=== PATIENT | female | born 1955 | race Caucasian/White ===

== ENCOUNTER 2016-10-09 11:10 | Observation (INO) | payer BC ==
[~2016-10-09] VITALS: Ht 167.6 cm; Wt 68.6 kg
--- NOTE | ~2016-10-09 | HEMODYNAMI ---
PATIENT:NATAN OBANDO MEDICAL RECORD: [id number] : 55 [facility] [id number] ADMISSION DATE: 10/09/16 Generatedon:10/10/201613:08 Patient name: NATAN OBANDO Patient #: [id number] SSN: DO B: 1955 Date of study: 10/10/2016 Page: Of Hemodynamic Procedure Report Patient Data Patient Demographics Procedure consent was obtained First Name: NATAN Gender: Female Last Name: GISELLA : 1955 [facility] Initial: NANDINI Age: 61 year(s) Patient #: [id number] Race: Unknown Additional ID: [id number] Contact details Address: [address] [place] [address] State: [place] City: [place] Zip code: [address] Past Medical History Allergies Allergen Reaction Date Comments Reported Other allergy 10/10/2016 paper tape Admission Admission Data Admission Date: 10/09/2016 Admission Time: 17:32 Room #: D2122 Lab Results Lab Result Date: 10/10/2016 Lab Result Time: 0:00 Biochemistry Name Units Result Min Max BUN mg/dl 12 --(-*--)-- 7 18 Creatinine mg/dl 0.9 --(-*--)-- 0.6 1.3 CBC Name Units Result Min Max Hemoglobin g/dl 14.1 --(*---)-- 13.5 17.5 Procedure Procedure Types Cath Procedure Diagnostic Procedure LHC LHC w/Coronaries PCI Procedure Coronary Stent Initial Miscellaneous Procedures Moderate Sedation up to 15 minutes Peripheral Cath Diagnostic Procedure Cath Peripheral Four Vessel Arteriogram Procedure Description Procedure Date Procedure Date: 10/10/2016 Procedure Start Time: 12:37 Procedure End Time: 13:06 Procedure Staff Name Function Jeff Paige MD Performing Physician Joe Griggs RT Scrub Zahida Carlos RN Nurse Rodney Brewer RT Monitor Procedure Data Cath Procedure Fluoroscopy Diagnostic fluoroscopy Total fluoroscopy Time: 5.1 time: 5.1 min min Diagnostic fluoroscopy Total fluoroscopy dose: 569 dose: 569 mGy mGy Contrast Material Contrast Material Type Amount (ml) Isovue 300 146 Entry Location Entry Primary Successful Side Size Upsize Upsize Entry Closure Succes sful Closure Location (Fr) 1 (Fr) 2 (Fr) Remarks Device Remarks Femoral Right 5 Fr 6 Fr artery Short Estimated blood loss: 10 ml Diagnostic catheters Device Type Used For End Catheter Placement Cordis 5Fr JL 4.0 Procedure Catheter (MP) Cordis 5Fr 3DRC Catheter Procedure (MP) Cordis 5Fr Pigtail Procedure Catheter (MP) Procedure Medications Medication Administration Route Dosage Oxygen NC 2 l/min Heparin Flush Bag added to field 2 bags (1000units/500ml NS) Lidocaine 2% added to field 20 Versed I.V. 1 mg Fentanyl I.V. 50 mcg Versed I.V. 1 mg Fentanyl I.V. 50 mcg Versed I.V. 1 mg Versed I.V. 1 mg Heparin Bolus I.V. 4000 units Integrilin (Bolus I.V. 6.2 ml 2mg/ml) Plavix P.O. 600 mg Hemodynamics Rest HGB: 14.1 (g/dl) Heart Rate: 80 (bpm) Pressure Samples Time Site Value (mmHg) Purpose Heart Use Rate(bpm) 12:39 AO 116/79(88) Snapshot 85 12:47 LV 130/6,21 Snapshot 98 Gradients Valve Time Site Site Mean SEP/DFP Peak To Heart Use 1 2 (mmHg) (sec/min) Peak Rate (mmHg) (bpm) Aortic 12:48 LV AO 97 Snapshots Pre Cath Intra NCS Post Cath Vital Signs Time Heart Resp SPO2 etCO2 LM2oqme NIBP (mmHg) Rhythm Pain Sedation Rate (ipm) (%) (mmHg) (mmHg) Status Level (bpm) 12:24:58 77 15 95 0 0 136/79(97) NSR 0 (11) 10(A) , No pain 12:29:10 79 15 99 0 0 124/77(93) NSR 0 (11) 10(A) , No pain 12:33:17 79 15 99 0 0 120/76(100) NSR 0 (11) 10(A) , No pain 12:37:25 81 18 97 0 0 115/74(95) NSR 0 (11) 10(A) , No pain 12:41:31 87 17 95 0 0 113/73(104) NSR 0 (11) 10(A) , No pain 12:45:37 89 18 96 0 0 101/71(90) NSR 0 (11) 10(A) , No pain 12:49:36 95 18 96 0 0 113/74(105) NSR 0 (11) 9(A) , No pain 12:53:42 91 16 96 0 0 102/71(96) NSR 0 (11) 9(A) , No pain 12:57:44 86 21 98 0 0 116/73(88) NSR 0 (11) 9(A) , No pain 13:01:03 87 13 95 0 0 101/81(96) NSR 0 (11) 9(A) , No pain 13:05:00 88 14 95 0 0 120/78(100) NSR 0 (11) 9(A) , No pain Medications Time Medication Route Dose Verified Delivered Reason Notes Effectiveness by by 12:31:35 Oxygen NC 2 Jeff Zahida Per physician l/min St. Andreas Carlos RN, MD 12:31:43 Heparin Flush added 2 Jeff Jeff used for Bag to bags [facility] procedure (1000units/500ml field MD SIN NS) 12:31:50 Lidocaine 2% added 20ml Jeff Jeff used for to vial [facility] procedure field MD SIN 12:31:58 Versed I.V. 1 mg Jeff Zahida for sedation [facility] Andreas Carlos RN, MD 12:32:04 Fentanyl I.V. 50 Jeff Zahida for sedation mcg [facility] Andreas Carlos RN, MD 12:34:52 Versed I.V. 1 mg Jeff Zahida for sedation [facility] Andreas Carlos RN, MD 12:35:03 Fentanyl I.V. 50 Jeff Zahida for sedation mcg [facility] Andreas Carlos RN, MD 12:37:48 Versed I.V. 1 mg Jeff Zahida for sedation [facility] Andreas Carlos RN, MD 12:40:59 Versed I.V. 1 mg Jeff Zahida for sedation [facility]. Andreas Carlos RN, MD 12:49:41 Heparin Bolus I.V. 4000 Jeff Zahida for dose units [facility] Andreas Carlos RN anticoagulation verified MD dalila banda 12:53:12 Integrilin I.V. 6.2 Jeff Teague for wasted (Bolus 2mg/ml) ml St. Anrdeas Carlos RN antiplatelet 3.8mL MD therapy 13:00:25 Plavix P.O. 600 [address] for mg [facility] Andreas Carlos RN antiplatelet MD therapy Procedure Log Time Note 12:00:02 Rodney Brewer RT(R) (CV) sent for patient. Start room use. 12::33 Lab Result : BUN 12 mg/dl 12::33 Lab Result : Creatinine 0.9 mg/dl 12::33 Lab Result : Hemoglobin 14.1 g/dl 12:09:58 ACC Patient presents with Unstable Angina CCS Anginal Class 3--Marked limitation of physical activity, angina occurs with ordinary activity.. 12:10:00 Diagnostic Cath status Urgent 12::09 Time tracking: Regular hours 12:10:13 Plan of Care:Hemodynamics will remain stable., Cardiac rhythm will remain stable., Comfort level will be maintained., Respiratory function will remain adequate., Patient/ family verbilizes understanding of procedure., Procedure tolerated without complication., Recovers from procedure without complications.. 12:20:10 Patient received from Med II to CCL 1 Alert and oriented. Tansferred to table in Supine position. 12:20:11 Warm blankets applied, and janene hugger turned on for patient comfort. 12:20:11 Correct patient and procedure confirmed by team. 12:20:13 Signed procedure consent form obtained from patient. 12:20:13 ECG and BP/O2 sat monitors applied to patient. 12:20:30 Lab results completed and on chart. 12:20:47 Previous problem with sedation/anesthesia? No ? 12:20:48 Snore? Yes 12:20:49 Sleep apnea? No 12:20:50 Deviated septum? No 12:20:51 Opens mouth fully? Yes 12:20:52 Sticks out tongue? Yes 12:21:15 Airway obstruction? Yes bronchitis 12:21:18 Dentures? No ? 12:23:53 Vital chart was started 12:26:01 Pre procedure: right dorsailis pedis pulse 2+ Normal; easily identifiable; not easily obliterated 12:26:06 Patient pain scale 0/10 ?. 12:26:22 IV patent on arrival in left wrist with 0.9% NaCl at [facility]. 12::31 Right groin area was prepped with chlora-prep and draped in sterile fashion 12::36 Alarms reviewed by R. N. 12::37 Sharps counted by scrub and verified by R.N. 12::41 Use device set Femoral Dx 12:26:43 Acist Syringe opened to sterile field. 12::44 Bag Decanter opened to sterile field. 12::45 Medline Cath Pack opened to sterile field. 12:26:45 Terumo 5Fr Gardiner Sheath opened to sterile field. 12:26:46 St Tomer 260cm J .035 wire opened to sterile field. 12:26:48 Acist Hand Control opened to sterile field. 12::48 Acist Manifold opened to sterile field. 12:26:49 Diagnostic Infinity 5Fr Multipack catheter opened to sterile field. 12:26:50 Tegaderm 4 x 4 opened to sterile field. 12:28:58 Baseline sample Acquired. 12:29:04 Rhythm: sinus rhythm 12:29:06 Full Disclosure recording started 12:29:14 H&P Date Dictated: 10/09/2016 Within 30 days and on chart.. 12:29:16 Pre-procedure instructions explained to patient. 12:29:20 Family in waiting room. 12:29:25 Patient NPO since Breakfast. 12:29:45 Patient allergic to Other allergypaper tape 12:29:50 Is the patient allergic to Iodine/contrast media? No. 12:29:54 Is patient on blood thinner?Yes 12:29:58 Patient diabetic? No. 12:30:03 Patient not . Patient is over age 55. 12:30:35 Physician arrived 12::36 --------ALL STOP TIME OUT------ 12:30:37 Final Timeout: patient, procedure, and site verified with staff and physician. All members of the team are in agreement. 12:30:46 Right groin site verified by team. 12:30:54 Physical assessment completed. ASA score P 2 - A patient with mild systemic disease as per Jeff Paige MD. 12:31:01 Sedation plan: IV Moderate Sedation Versed, Fentanyl 12:31:35 Oxygen 2 l/min NC was administered by Zahida Breanna RN; Per physician; 12:31:43 Heparin Flush Bag (1000units/500ml NS) 2 bags added to field was administered by Jeff Paige MD; used for procedure; 12:31:50 Lidocaine 2% 20ml vial added to field was administered by Jeff Paige MD; used for procedure; 12:31:58 Versed 1 mg I.V. was administered by Zahida Carlos RN; for sedation; 12:32:04 Fentanyl 50 mcg I.V. was administered by Zahida Carlos RN; for sedation; 12:34:52 Versed 1 mg I.V. was administered by Zahida Carlos RN; for sedation; 12:35:03 Fentanyl 50 mcg I.V. was administered by Zahida Carlos RN; for sedation; 12:35:39 Zero performed for pressure channel P1 12:37:02 Procedure started. 12:37:06 Local anesthetic to right femoral artery with Lidocaine 2% by Jeff Paige MD.INITIAL ACCESS ONLY 12:37:48 Versed 1 mg I.V. was administered by Zahida Carlos RN; for sedation; 12:38:07 A 5 Fr sheath was inserted into the Right Femoral artery 12:39:04 A Cordis 5Fr JL 4.0 Catheter (MP) was advanced over the wire and used for Procedure. 12:39:28 LCA angiography performed. 12:40:27 Catheter removed. 12:40:59 Versed 1 mg I.V. was administered by Zahida Carlos RN; for sedation; 12:41:01 A Cordis 5Fr 3DRC Catheter (MP) was advanced over the wire and used for Procedure. 12:41:41 RCA angiography performed. 12:43:28 Left carotid angiography performed. 12:44:18 Right carotid angiography performed. 12:46:14 Catheter removed. 12:46:22 A Cordis 5Fr Pigtail Catheter (MP) was advanced over the wire and used for Procedure. 12:47:32 Dyynotronic Launcher 6Fr HS I guide catheter opened to sterile field. 12:47:35 [employer]KS BasixCompak Inflation Kit opened to sterile field. 12:48:08 LV hemodynamics recorded. 12:48:11 LV gram done using ROSE 12:48:22 EF : 60 % 12:48:46 Catheter removed. 12:48:54 Proceeding to intervention. 12:49:31 Wahl [place] 300cm 0.014 guide wire opened to sterile field. 12:49:41 Heparin Bolus 4000 units I.V. was administered by Zahida Carlos RN; for anticoagulation; dose verified wtih dr banda 12:49:52 Procedure type changed to Cath procedure, Diagnostic procedure, LHC, LHC w/Coronaries, PCI procedure, Coronary Stent Initial, Miscellaneous Procedures, Moderate Sedation up to 15 minutes, Peripheral Cath Diagnostic Procedure, Cath Peripheral, Four Vessel Arteriogram 12:50:00 Wahl BMW [place] 2 J-tip 300cm 0.014 guide wir opened to sterile field. 12:50:23 Terumo 6Fr Gardiner Sheath opened to sterile field. 12:50:33 Sheath upsized to a 6 Fr Short. 12:50:43 6 Fr HS 1 guide catheter was inserted over the wire 12:51:25 COUGAR wire advanced. 12:52:49 Wire advanced across lesion. 12:53:12 Integrilin (Bolus 2mg/ml) 6.2 ml I.V. was administered by Zahida Carlos RN; for antiplatelet therapy; wasted 3.8mL 12:53:55 Inflation Number: 1 A Medtronic Integrity 3.5 X 12 stent was prepped and advanced across the Mid RCA. The stent was deployed at 14 MAMI for 0:30 (min:sec). 12:54:38 Stent catheter was removed intact over wire. 12:58:38 Inflation Number: 1 A Medtronic Integrity 3.5 X 12 stent was prepped and advanced across the Prox RCA. The stent was deployed at 0 MAMI for 0:30 (min:sec). 12:59:01 Stent catheter was removed intact over wire. 12:59:02 Wire removed. 12:59:03 Guide catheter removed. 12:59:26 Cordis 6Fr Exoseal opened to sterile field. 12:59:29 Procedure ended.(Physican Out) 13:00:25 Plavix 600 mg P.O. was administered by Zahida Carlos RN; for antiplatelet therapy; 13:00:50 Fluoroscopy time 05.10 minutes. 13:00:57 Fluoroscopy dose: 569 mGy 13:00:57 Flurop Dose total: 569 13:01:02 Contrast amount:Isovue 300 146ml. 13:01:07 Sharps counted by scrub and verified by R.N. 13:03:47 Insertion/operative site no bleeding no hematoma. 13:03:51 Post-op/insertion site Right Femoral artery dressed using a 4 x 4 and Tegaderm. 13:03:55 Post right femoral artery:stable 13:03:57 Post Procedure Pulses reassessed and unchanged 13:05:12 Post-procedure physical assessment completed. ASA score P 2 - A patient with mild systemic disease as per Jeff Paige MD. 13:05:28 Post procedure rhythm: unchanged. 13:05:48 Estimated blood loss: 10 ml 13:05:50 Post procedure instruction explained to patient.Patient verbalizes understanding. 13:05:51 Patient needs reinforcement of post procedure teaching. 13:05:52 Procedure and supply charges have been captured, reviewed, submitted and are correct. 13:05:53 Vital chart was stopped 13:05:54 See physician's report for complete and final results. 13:05:56 Report given to PCU. 13:06:00 Patient transfered to PCU with Bed. 13:06:03 Procedure ended. 13:06:03 Full Disclosure recording stopped 13:07:10 End room use (Document Last) Intervention Summary Intervention Notes Time ActionType Lesion and Equipment Action# Pressure Duration Attributes Used 12:53:55 Place stent Mid RCA Medtronic 1 14 00:30 Integrity 3.5 X 12 stent 12:58:38 [address] stent Prox RCA Medtronic 1 0 00:30 Integrity 3.5 X 12 stent Device Usage Item Name Manufacture Quantity Catalog Hospital Part Current Minimal Lot# / Number Charge Number Stock Stock Serial# Code Acist Acist 1 44471 795189 085903 [id number] 20 Syringe Medical Systems Inc Bag Microtek 1 2002S 409434 10623 110414 5 Decanter [employer] Medline Cardinal 1 [id number] 915206 13262 479148 5 Cath Pack CNZZ Terumo 5Fr Terumo 1 [id number] 293666 646907 978463 [address] Tomer 1 607257 705135 426271 610411 30 260cm J .035 wire Acist Hand Acist 1 22036 547053 138477 924252 5 [employer] Inc Acist Acist 1 09689 622967 301998 168311 5 [employer] Inc Diagnostic Cardinal 1 [id number] 228082 04283 357422 30 Infinity Health 5Fr Multipack catheter Tegaderm 4 3M 1 1626W 421030 368612 762376 5 x 4 Cordis 5Fr Cardinal 1 566808 5 JL 4.0 Health Catheter (MP) Cordis 5Fr Cardinal 1 766309 5 3DRC Health Catheter (MP) Cordis 5Fr Cardinal 1 733095 5 Pigtail Health Catheter (MP) Medtronic Medtronic 1 [id number] 834129 02678 734946 1 Launcher 6Fr HS I guide catheter [facility] 1 [id number] 905166 380009 807801 15 BasixCompak Medical Inflation Kit Wahl Wahl 1 [id number] 130305 739967 440566 1 [place] Vascular 300cm 0.014 guide wire Terumo 6Fr Terumo 1 [id number] 911585 860826 506455 40 Gardiner Sheath Wahl BMW Wahl 1 [id number] 737073 481386 573245 5 [place] 2 Vascular J-tip 300cm 0.014 guide wir Medtronic Medtronic 2 [id number] 373023 960014 6 [id number] Integrity [id number] 3.5 X 12 stent Cordis 6Fr Cardinal 1 EX600 099946 570525 070498 10 [facility] CNZZ Signature Audit [place] Stage Time Signature Unsigned Intra-Procedure 10/10/2016 Rodney Brewer 1:08:41 PM RT(R) (CV) Signatures Monitor : Rodney Brewer RT Signature : Date : Time : [facility] [address] [place] [address]
[2016-10-09 11:52] LABS: BASOPHILS 0.3 % (0-2); HEMATOCRIT 41.4 % (36.0-48.0); IMMATURE GRANULOCYTES 0.5 % (0-5); MCH 32.6 pg (26.0-34.0); MCHC 33.8 g/dL (31.0-37.0); MCV 96.3 fL (80.0-100.0); MONOCYTES 8.2 % (2-11); PLATELET COUNT 182 10x3/uL (130-400); RDW 12.2 % (11.5-14.5); WBC 10.6 10x3/uL (4.8-10.8)
[2016-10-09 12:11] LABS: ALBUMIN 3.3 g/dL (3.4-5.0); ALKALINE PHOSPHATASE 71 U/L (46-116); ALT (SGPT) 34 U/L (10-68); BILIRUBIN - TOTAL 0.52 mg/dL (0.2-1.3); CALC OSMOLALITY 270 mosm/kg (275-300); CALCIUM 8.6 mg/dL (8.5-10.1); CARBON DIOXIDE 28.1 mmol/L (21.0-32.0); CHLORIDE - SERUM 101 mmol/L (98-107); CREATININE - SERUM 0.8 mg/dL (0.6-1.3); GLUCOSE 84 mg/dL (74-106); PROTEIN - SERUM 7.1 g/dL (6.4-8.2); SODIUM 137 mmol/L (136-145); UREA NITROGEN 7 mg/dL (7-18); eGFR NON AFRICAN AMERICAN 77 mL/min (90-120)
[2016-10-09 12:19] LABS: POTASSIUM - SERUM 5.2 mmol/L (3.5-5.1)
[2016-10-09 12:26] LABS: CHOLESTEROL, TOTAL 156 mg/dL (0-200); CKMB 0.9 U/L (0.0-3.6); CREATINE KINASE 170 UL (21-215); TRIGLYCERIDE 333 mg/dL (30-200); TROPONIN-I < 0.017 ng/mL (0.000-0.060)
[2016-10-09 12:27] LABS: CHOL - HDL RATIO 5.8 ratio (2.3-4.1); HDL CHOLESTEROL 27 mg/dL (32-96); LDL CHOLESTEROL 63 mg/dL (0-100); LDL-HDL RATIO 2.3 ratio (1.5-3.5)
--- NOTE | 2016-10-09 18:30 | NUR ---
RECEIVED PT TO ROOM 212 ALERT O X3. ASSESS AND HISTORY COMPLETE. MEDS REVIEWED AND UPDATED MED REC. ORIENTED TO ROOM AND CALL LIGHT. TELE SR. CONT TO MONITOR.
[2016-10-09] MEDS ORDERED: PREVACID30 MG PO (19:57)
[2016-10-09] MEDS ORDERED: AMBIEN10 MG PO (19:57)
[2016-10-09] MEDS ORDERED: KLONOPIN0.5 MG PO (19:57)
[2016-10-09] MEDS ORDERED: LEVOTHYROXINE75 MCG PO (19:58)
[2016-10-09] MEDS ORDERED: CELEXA40 MG PO (19:58)
[2016-10-09] MEDS ORDERED: ALENDRONATE SOD70 MG PO (19:58)
[2016-10-09] MEDS ORDERED: DETROL LA4 MG PO (19:59)
[2016-10-09] MEDS ORDERED: ZYPREXA10 MG PO (19:59)
[2016-10-09] MEDS ORDERED: ASPIRIN81 MG PO (20:00)
[2016-10-09 20:08] VITALS: Ht 167.6 cm; Wt 68.6 kg
[2016-10-09 20:19] VITALS: BP 118/68
[2016-10-10 00:41] VITALS: BP 89/40
[2016-10-10 04:23] VITALS: BP 92/59
[2016-10-10 04:39] LABS: BASOPHILS 0.3 % (0-2); EOSINOPHILS 2.3 % (0-7); HEMATOCRIT 41.5 % (36.0-48.0); HEMOGLOBIN 14.1 g/dL (12-16); IMMATURE GRANULOCYTES 0.3 % (0-5); MCH 32.9 pg (26.0-34.0); MCV 96.7 fL (80.0-100.0); MEAN PLATELET VOLUME 9.9 fL (7.4-10.4); MONOCYTES 9.7 % (2-11); NEUTROPHILS 52.4 % (40-80); PLATELET COUNT 179 10x3/uL (130-400); RBC 4.29 10x6/uL (4.00-5.40); RDW 12.1 % (11.5-14.5); WBC 8.8 10x3/uL (4.8-10.8)
[2016-10-10 05:23] LABS: ALBUMIN 3.2 g/dL (3.4-5.0); ALKALINE PHOSPHATASE 72 U/L (46-116); ALT (SGPT) 30 U/L (10-68); BILIRUBIN - TOTAL 0.32 mg/dL (0.2-1.3); CALCIUM 8.3 mg/dL (8.5-10.1); CARBON DIOXIDE 28.2 mmol/L (21.0-32.0); CHLORIDE - SERUM 105 mmol/L (98-107); CREATININE - SERUM 0.9 mg/dL (0.6-1.3); GLUCOSE 87 mg/dL (74-106); PROTEIN - SERUM 6.7 g/dL (6.4-8.2); SODIUM 140 mmol/L (136-145); eGFR NON AFRICAN AMERICAN 67 mL/min (90-120)
[2016-10-10 05:31] LABS: CALC OSMOLALITY 277 mosm/kg (275-300); POTASSIUM - SERUM 4.2 mmol/L (3.5-5.1); TROPONIN-I < 0.017 ng/mL (0.000-0.060); UREA NITROGEN 12 mg/dL (7-18)
[2016-10-10 08:00] VITALS: BP 114/58
[2016-10-10 12:00] VITALS: BP 101/56
[2016-10-10 15:52] VITALS: BP 95/57
[2016-10-10] MEDS ORDERED: PLAVIX75 MG PO (16:13)
--- NOTE | 2016-10-10 16:16 | NUR ---
ORDER FOR DC. AWAN REMOVED WITH 10CC DEFLATED AND TIP IN PLACE. IV DC. PT GETTING BETTER.
--- NOTE | 2016-10-10 17:08 | NUR ---
THIS SHIFT: PT WENT FOR HEART CATH. POST PROCEDURE NO EDEMA NO BLEEDING NO HEMATOMA ON SITE. PT LYING FLAT UNTIL 1730.MONITOR [facility] SR @66
--- NOTE | 2016-10-10 17:40 | NUR ---
PT SITTING UP IN BED. NO EDEMA, BLEEDING NOR HEMATOMA AT PUNCTURE SITE.
--- NOTE | 2016-10-10 19:53 | NUR ---
IV REMOVED WITH TIP INTACT. ESCORTED OUT IN WHEELCHAIR.
--- NOTE | 2016-10-11 12:52 | OP ---
PATIENT NAME: NATAN OBANDO MEDICAL RECORD: [id number] :55 LOCATION:D.M2 D.2122 ADMISSION DATE:10/09/16 SURGEON: EULOGIO ACEVEDO MD DATE OF OPERATION: 10/10/2016 PROCEDURES: Left heart cath, selective coronary angiography, PTCA stent ____ of the right coronary artery, and four-vessel arteriography. FINDINGS: Four-vessel arteriography: 1. Left common carotid was selectively engaged that shows left common carotid, shows minimal wall disease with no significant stenosis. 2. Left internal carotid, no significant stenosis. 3. Left external carotid, smooth-walled, but no significant stenosis. 4. Right common carotids were selectively engaged. Right common carotid shows smooth-walled vessel with no significant stenosis. Right internal carotid smooth-walled vessel with no significant stenosis. 5. Right external carotid, smooth-walled vessel with no significant stenosis. IMPRESSION: No significant stenosis either carotid system. ____ left heart catheterization, selective coronary angiography and left ventriculography in 30-degree ROSE view: Normal wall motion and normal systolic function, EF greater than 60%. CORONARY ANATOMY: Left main: Left main is free of disease. LAD free in the diagonal system and circumflex is diminutive, free of disease. Right coronary: Huge dominant artery that shows 2 sequential stenoses of 80%. Both quite discrete in its proximal third and in the mid vessel. IMPRESSION: Single-vessel disease involving the right coronary artery. PLAN: Intervention of this vessel momentarily. DESCRIPTION: A 5-Tanzanian sheath was changed for a 6-Tanzanian sheath. A hockey stick guide catheter provided excellent guide catheter support followed by 300 cm [place] XT wire was placed across both lesions, down this portion of vessel. Stent deployed distally was a 3.5 x 12 mm Integrity nondrug-eluting stent to 14 atmospheres. Next, a proximal stenosis was addressed with a 3.5 x 12 mm Integrity nondrug-eluting stent again up to 14 atmospheres. Final angiography shows excellent resolution of two 80% stenosis to no significant residual. MARIO flow was 3 throughout the procedure. Integrilin was used during the case. Sheath was closed with ExoSeal device. TRANSINT:[id number] Voice Confirmation ID: [id number] DOCUMENT ID: [id number] EULOGIO ACEVEDO MD at 1252 CC: [id number] DICTATION DATE: 10/10/16 1304 COMMERCIAL RETOUCHER: 10/11/16 0014 DIS IN 10/10/16 [facility] [address] [id number]
--- NOTE | 2016-10-11 12:52 | CN ---
PATIENT NAME:NATAN OBANDO MEDICAL RECORD: [id number] : 55 LOCATION:D. D.2122 ADMIT DATE: 10/09/16 ACCOUNT: [id number] CONSULTING PHYSICIAN: EULOGIO ACEVEDO MD REFERRING PHYSICIAN: DORIAN SALAZAR MD DATE OF CONSULTATION: 10/10/2016 HISTORY OF PRESENT ILLNESS: A 61-year-old lady, initially saw in clinic with exertional progressive angina, chest tightness and pressure with exertion as well as TIA type symptomatology. She has had a bruit on exam at that time. She presented with rest symptomatology yesterday, relieved at home after 30 minutes with aspirin. She had quit smoking for 3 weeks, but started back yesterday. We are asked to her concerning her cardiovascular status. Chronic cardiac enzymes. ECG without acute change. PAST MEDICAL HISTORY: Includes: 1. History of hypothyroidism, on replacement. 2. Gastroesophageal reflux disease. 3. Clinically airway obstructive pulmonary disease. MEDICATIONS: Include Fosamax 70 mg p.o. q. day, Detrol 4 mg p.o. q. day, Synthroid 75 mcg q. day, Prevacid 30 q. day, Ambien 10 q. day, Zyprexa 10 q.h.s., Celexa 40 q. day, and aspirin 81 q. day. SOCIAL HISTORY: Lives here in [place]. She has had quit smoking for 30 days, started back yesterday. She is a nondrinker. No significant exercise programs. REVIEW OF SYSTEMS: The patient reports easy bruising but reports no swollen glands. The patient reports no fever, no night sweats, no significant weight gain, no significant weight loss. No significant exercise tolerance. The patient reports no dry eyes, no irritation, no vision change. Patient reports no difficulty hearing and no ear pain. Patient reports no frequent nose bleeds or nose and sinus problems. Patient reports on arm pain on exertion. No shortness of breath while lying down. No history of heart murmur. Patient reports no cough, no wheezing or coughing up blood. Patient reports no abdominal pain, no vomiting. Normal appetite. No diarrhea and not vomiting blood. No nausea and no constipation. Patient reports no incontinence. No difficulty urinating. No hematuria. No increased frequency. Patient reports no muscle aches. No weakness, no arthralgias, no back pain. No swelling of the extremities. Patient reports no abnormal mole, no jaundice, no rashes. Reports no loss of consciousness. No weakness and no numbness. No seizures, dizziness, or headaches. The patient reports no depression, no sleep disturbance, feeling safe in a relationship and no alcohol abuse. Patient reports on fatigue. Reports no runny nose or sinus pressure. No itching, no hives, and no frequent sneezing. PHYSICAL EXAMINATION: GENERAL: Middle-aged female, appears somewhat older than her stated age, alert and oriented. VITAL SIGNS: Blood pressure 92/59, pulse 86 and regular. HEENT: Normocephalic and atraumatic. NECK: A left carotid bruits noted. HEART: Regular. II/ systolic ejection murmur. CONSULT REPORT [id number] NATAN OBANDO LUNGS: Slightly prolonged expiratory phase. No active wheezes. ABDOMEN: Soft and nontender. EXTREMITIES: Pulse 2+. There is no edema. NEUROLOGIC: Grossly intact. DIAGNOSTIC DATA: ECG without acute change. IMPRESSION: Progressive angina, now at rest symptomatology. We will proceed with diagnostic angiography, intervention based on the above. TRANSINT:[id number] Voice Confirmation ID: [id number] DOCUMENT ID: [id number] EULOGIO ACEVEDO MD at 1252 CC: [id number] DICTATION DATE: 10/10/16818 INSOLE BEVELER: 10/10/162015 DIS IN 10/10/16 [facility] [address] [id number]
== END 2016-10-10 19:53 | disposition home or self-care (01) ==
LOC: D.ER 11:10 → D.M2 17:32 → OBSVTIME 17:32 → D.M2 17:32
PROVIDERS: Emergency Medicine; ADMIT Family Medicine
DX: I25.119 Atherosclerotic heart disease of native coronary artery with unspecified angina pectoris (principal); E03.9 Hypothyroidism, unspecified; K21.9 Gastro-esophageal reflux disease without esophagitis; E87.5 Hyperkalemia; E78.1 Pure hyperglyceridemia; F32.9 Major depressive disorder, single episode, unspecified; Z72.0 Tobacco use

== ENCOUNTER → 2017-02-21 15:49 | Outpatient (CLI) | payer BC ==
[2016-10-09 20:08] VITALS: BMI 24.4
[~2017-02-21 15:49] MED LIST: ALENDRONATE SOD70 MG PO; AMBIEN10 MG PO; ASPIRIN81 MG PO; CELEXA40 MG PO; DETROL LA4 MG PO; KLONOPIN0.5 MG PO; LEVOTHYROXINE75 MCG PO; PLAVIX75 MG PO; PREVACID30 MG PO; ZYPREXA10 MG PO
== END | disposition home or self-care (01) ==
LOC: D.MAMMO 11:15
DX: Z12.31 Encounter for screening mammogram for malignant neoplasm of breast (principal)

== ENCOUNTER → 2017-04-10 14:33 | Outpatient (CLI) | payer BC ==
[2016-10-09 20:08] VITALS: BMI 24.4
== END | disposition home or self-care (01) ==
LOC: D.MAMMO 10:30
DX: R92.8 Other abnormal and inconclusive findings on diagnostic imaging of breast (principal)

== ENCOUNTER → 2018-06-10 16:26 | Outpatient (CLI) | payer BC ==
[2016-10-09 20:08] VITALS: BMI 24.4
== END | disposition home or self-care (01) ==
LOC: D.MAMMO 09:00
DX: R92.8 Other abnormal and inconclusive findings on diagnostic imaging of breast (principal)

== ENCOUNTER 2018-07-17 05:30 | Day surgery (SDC) | payer BC ==
[2018-07-16 16:06] LABS: HEMATOCRIT 42.7 % (36.0-48.0); HEMOGLOBIN 14.8 g/dL (12-16); MCH 33.6 pg (26.0-34.0); MCHC 34.7 g/dL (31.0-37.0); MEAN PLATELET VOLUME 9.4 fL (7.4-10.4); RBC 4.4 10x6/uL (4.00-5.40); RDW 12.2 % (11.5-14.5); WBC 15.2 10x3/uL (4.8-10.8)
[2018-07-16 16:24] LABS: ALBUMIN 3.4 g/dL (3.4-5.0); ALKALINE PHOSPHATASE 55 U/L (46-116); ALT (SGPT) 14 U/L (10-68); BILIRUBIN - TOTAL 0.53 mg/dL (0.2-1.3); CALC OSMOLALITY 270 mosm/kg (275-300); CALCIUM 8.1 mg/dL (8.5-10.1); CARBON DIOXIDE 25.9 mmol/L (21.0-32.0); CHLORIDE - SERUM 99 mmol/L (98-107); CREATININE - SERUM 0.8 mg/dL (0.6-1.3); GLUCOSE 90 mg/dL (74-106); POTASSIUM - SERUM 3.8 mmol/L (3.5-5.1); SODIUM 136 mmol/L (136-145); UREA NITROGEN 9 mg/dL (7-18); eGFR NON AFRICAN AMERICAN 77 mL/min (90-120)
[~2018-07-17] VITALS: Ht 167.6 cm; Wt 66.2 kg
--- NOTE | ~2018-07-17 | OP ---
PATIENT NAME: NATAN OBANDO MEDICAL RECORD: [id number] :55 LOCATION:D.OPS ADMISSION DATE: SURGEON: DORIAN FLORES MD DATE OF OPERATION: 07/17/2018 PREOPERATIVE DIAGNOSIS: Right S1 and L5 radiculopathy. POSTOPERATIVE DIAGNOSES: Right S1 and L5 radiculopathy secondary to lumbar spinal stenosis at L5-S1 and foraminal stenosis of L5-S1, right with disc protrusion. SURGEON: Dorian Flores MD DESCRIPTION OF TECHNIQUE: After induction of general endotracheal anesthesia, the patient was rolled prone on a Joseph frame. Lumbar spine was prepped and draped in usual sterile fashion. Fluoroscopic x-ray and spinal needle localized the L5-S1 interspace on the right side. A stab incision was created with a #11 blade and series of dilators was used to advance the METRx retractor to the L5-S1 interspace on the right side. Level was confirmed with fluoroscopic x-ray. A microscope and Midas Brandon drill were used to perform a laminotomy, medial facetectomy, and foraminotomy at L5-S1 on the right side. Following this, hypertrophied ligamentum flavum was removed with Cloward rongeurs. A disc protrusion was found compressing the S1 nerve root on the right. The annulus was incised with a #11 blade and disc material was removed from the posterior one-third of the disc space. Following this, the nerve root was completely decompressed. The axilla of the nerve was explored and there was no fragment within the axilla or the nerve root. Meticulous hemostasis was maintained throughout the wound. The wound was irrigated with copious amounts of Ancef irrigant solution. The retractor was removed. The fascia was closed with 2-0 Vicryl suture, the subdermal layer was closed with 3-0 Vicryl suture. The skin was closed with sudarshan. A sterile dressing was applied to the wound. The patient was awakened in good condition and taken to recovery. All counts were reported as correct. Estimated blood loss was minimal. TRANSINT:[id number] Voice Confirmation ID: [id number] DOCUMENT ID: [id number] DORIAN FLORES MD CC: [id number] DICTATION DATE: 07/30/18716 MIS MANAGER: 07/30/18819 [facility] 07/17/[address] [place] [address]
[~2018-07-17 05:30] MED LIST changes: +PERCOCET 10-321 EAC1 PO; +TRAZODONE HCL150 MG PO
[2018-07-17 06:23] VITALS: BP 105/50; Ht 167.6 cm; Wt 66.2 kg
--- NOTE | 2018-07-17 09:16 | NUR ---
NOTED A FEW SMALL SCABY AREAS ON RIGHT POSTERIOR THIGH
--- NOTE | 2018-07-17 17:20 | NUR ---
RIGHT HAND PIV DC'D WITH TIP INTACT. DISCHARGE ISNTRUCTIONS REVIEWED WITH PATIENT AND SISTER. PATIENT IS STRONGLY ENCOURAGED TO NOT SMOKE OR TO MINIMIZE SMOKING MUCH POSSIBLE DUE TO RESPIRATORY STATUS. PATIENT DECLINES SMOKING CESSATION MEDICATION, STATES HAS PATCHES AT HOME AND DOESN'T USE. THIS NURSE STRONGLY ENCOURAGES PATIENT TO CONSIDER QUITTING. DISCHARGED HOME VIA WHEELCHAIR TO PRIVATE VEHICLE WITH SISTER AND SPOUSE
== END 2018-07-17 17:20 | disposition home or self-care (01) ==
LOC: D.OPS 05:30 → D.PAN 08:30 → D.OPS 09:30
PROVIDERS: Anesthesiology; ATTEND Neurological Surgery
DX: M48.07 Spinal stenosis, lumbosacral region (principal); M51.17 Intervertebral disc disorders with radiculopathy, lumbosacral region; Z01.812 Encounter for preprocedural laboratory examination

== ENCOUNTER 2018-09-14 15:12 | Emergency (ER) | payer BC ==
[~2018-09-14] VITALS: Ht 167.6 cm; Wt 65.0 kg
[2018-09-14 15:17] VITALS: Ht 167.6 cm; Wt 65.0 kg
[2018-09-14] MEDS ORDERED: VOLTAREN75 MG PO (17:34)
[2018-09-14] MEDS ORDERED: ROBAXIN500 MG PO (17:34)
[2018-09-14 17:46] VITALS: BP 132/68
== END 2018-09-14 17:47 | disposition home or self-care (01) ==
LOC: D.ER 15:12
DX: M54.5 Low back pain (principal)

== ENCOUNTER → 2019-02-26 08:39 | Outpatient (CLI) | payer BC ==
[2018-09-14 15:17] VITALS: BMI 23.1
[~2019-02-26 08:39] MED LIST changes: +ROBAXIN500 MG PO; +VOLTAREN75 MG PO
--- NOTE | 2019-03-02 13:29 | EC ---
PATIENT:NATAN OBANDO DATE OF SERVICE: 02/26/19 SEX: F MEDICAL RECORD: [id number] DATE OF : 55 LOCATION:D.[facility]ERLY [facility] [place] AGE OF PATIENT: 63 ADMISSION DATE: 02/26/19 REFERRING PHYSICIAN: INTERPRETING PHYSICIAN: EULOGIO ACEVEDO MD ECHOCARDIOGRAM REPORT ECHO CHARGES 4 ECHO COMPLETE Date: 02/26/19 CLINICAL DIAGNOSIS: CAD/ ASSESS EF AND VALVES ECHOCARDIOGRAPHIC MEASUREMENTS (adult normal given) AC root (d.<3.7cm) 2.7 cm LV Septum d (<1.2 cm> 1.2 cm Valve Excursion 1.4 cm LV Septum (systole) 1.3 cm Left Atria (s.<4.0cm> 3.0 cm LVPW d(<1.2cm) 1.2 cm RV (d.<2.3cm) 2.4 cm LVPW (sytole) 1.5 cm LV diastole(<5.6CM) 4.4 cm MV E-F(>70mm/sec) cm LV systole 2.9 cm LVOT Diameter 1.8 cm MV exc.(>10mm) 1.5 cm Est.ejection fraction (50-75%) % DOPPLER: LVIT cm/sec A 42.0 cm/sec E 83.0 cm/sec LA cm/sec RVSP 20 mmHg LVOT 89 cm/sec AOP1/2T m/s Asc. Ao 105 cm/sec RVOT 64 cm/sec RA cm/sec PA 83 cm/sec AV Gradient Peak 4.43 mmHg AV Mean 2.24 mmHg AV Area 2.1 cm MV Gradient Peak 5.05 mmHg MV Mean 1.75 mmHg MV Area cm COMMENTS: Foreman/Pile Driving And Erection: 2 IRENE KRAMER [employer] Controls Assembler: 3 Dr. Paige TAPE# PACS Pericardial Effusion N DATE OF SERVICE: Adequate 2D, color flow, and spectral Doppler, and M-mode. Borderline LVH. LV internal dimension is normal. Wall motion is normal. EF is greater than or equal to 55%. Aortic valve is tricuspid. No evidence of stenosis by Doppler interrogation. Left atrium is normal. Mitral valve shows no prolapse. Trace MR. Right-sided chambers are grossly normal. Trace TR. TRANSINT:[id number] Voice Confirmation ID: [id number] DOCUMENT ID: [id number] ECHOCARDIOGRAM REPORT [id number] NATAN OBANDO,EULOGIO Roberto MD at 1329 CC: [id number] DICTATION DATE: 02/26/19 1345 DIRECTOR COMMUNICATIONS: 02/26/19 1402 DEP CLI 02/26/19 [id number] [place] [address]
== END | disposition home or self-care (01) ==
LOC: D.HCCECHO 08:30
PROVIDERS: ATTEND Internal Medicine Interventional Cardiology
DX: I25.10 Atherosclerotic heart disease of native coronary artery without angina pectoris (principal)

== ENCOUNTER 2019-07-20 10:30 | Outpatient (CLI) | payer BC ==
[~2019-07-20] VITALS: Ht 167.6 cm; Wt 62.7 kg
[2019-07-20] MEDS ORDERED: VITAMIN B-6100 MG PO (11:25)
[2019-07-20] MEDS ORDERED: CALCIUM 250+D T1 TAB PO (11:25)
[2019-07-20] MEDS ORDERED: MULTI-DAY VITAM1 TAB PO (11:26)
[2019-07-20 11:32] VITALS: BP 124/79; Ht 167.6 cm; Wt 62.7 kg
[2019-07-20 12:19] LABS: CALC OSMOLALITY 270 mosm/kg (275-300); CALCIUM 8.3 mg/dL (8.5-10.1); CARBON DIOXIDE 26.5 mmol/L (21.0-32.0); CHLORIDE - SERUM 103 mmol/L (98-107); CREATININE - SERUM 0.6 mg/dL (0.6-1.3); GLUCOSE 93 mg/dL (74-106); POTASSIUM - SERUM 3.8 mmol/L (3.5-5.1); SODIUM 137 mmol/L (136-145); UREA NITROGEN 5 mg/dL (7-18); eGFR NON AFRICAN AMERICAN > 90 mL/min (90-120)
[2019-07-20 12:20] LABS: BASOPHILS 0.2 % (0-2); EOSINOPHILS 0.5 % (0-7); HEMATOCRIT 44.5 % (36.0-48.0); HEMOGLOBIN 15.1 g/dL (12-16); IMMATURE GRANULOCYTES 0.5 % (0-5); LYMPHOCYTES 17.7 % (15-50); MCHC 33.9 g/dL (31.0-37.0); MCV 97.2 fL (80.0-100.0); MONOCYTES 7.4 % (2-11); NEUTROPHILS 73.7 % (40-80); PLATELET COUNT 184 10x3/uL (130-400); RBC 4.58 10x6/uL (4.00-5.40); RDW 12.7 % (11.5-14.5); WBC 14.7 10x3/uL (4.8-10.8)
[2019-07-20 12:37] LABS: APTT 25.3 SECONDS (22.8-39.4); INR 0.97 (0.85-1.17); PROTIME 12.8 SECONDS (11.6-15.0)
--- NOTE | 2019-07-20 13:02 | NUR ---
1215 IV REMOVED AND INSTRUCTIONS GIVEN.
[2019-07-21 10:10] LABS: ANA REFLEX - DIRECT Negative (Negative)
[2019-07-22 05:09] LABS: ANGIOTENSIN CONVERTING ENZYME 29 U/L (14-82)
== END 2019-07-20 12:35 | disposition home or self-care (01) ==
LOC: D.LAB 10:30 → D.CT 10:30
PROVIDERS: General Practice; ATTEND Internal Medicine Pulmonary Disease
DX: J44.9 Chronic obstructive pulmonary disease, unspecified (principal); R91.8 Other nonspecific abnormal finding of lung field

== ENCOUNTER 2019-07-24 11:06 | Outpatient (CLI) | payer BC ==
[~2019-07-24] VITALS: Ht 167.6 cm; Wt 64.5 kg
[~2019-07-24 11:06] MED LIST changes: +CALCIUM 250+D T1 TAB PO; +MULTI-DAY VITAM1 TAB PO; +VITAMIN B-6100 MG PO
[2019-07-24 11:44] LABS: BASOPHILS 0.2 % (0-2); EOSINOPHILS 0.3 % (0-7); HEMATOCRIT 48.2 % (36.0-48.0); HEMOGLOBIN 16.9 g/dL (12-16); IMMATURE GRANULOCYTES 0.4 % (0-5); LYMPHOCYTES 11.8 % (15-50); MCH 33.9 pg (26.0-34.0); MCHC 35.1 g/dL (31.0-37.0); MCV 96.8 fL (80.0-100.0); MEAN PLATELET VOLUME 9.1 fL (7.4-10.4); MONOCYTES 6.2 % (2-11); NEUTROPHILS 81.1 % (40-80); RBC 4.98 10x6/uL (4.00-5.40); RDW 12.6 % (11.5-14.5); WBC 19.1 10x3/uL (4.8-10.8)
[2019-07-24 11:50] LABS: CALC OSMOLALITY 272 mosm/kg (275-300); CALCIUM 9.3 mg/dL (8.5-10.1); CARBON DIOXIDE 26.5 mmol/L (21.0-32.0); CHLORIDE - SERUM 100 mmol/L (98-107); CREATININE - SERUM 0.7 mg/dL (0.6-1.3); GLUCOSE 105 mg/dL (74-106); PLATELET COUNT 230 10x3/uL (130-400); POTASSIUM - SERUM 4.1 mmol/L (3.5-5.1); SODIUM 137 mmol/L (136-145); UREA NITROGEN 9 mg/dL (7-18); eGFR NON AFRICAN AMERICAN 89 mL/min (90-120)
[2019-07-24 12:11] LABS: APTT 26.5 SECONDS (22.8-39.4); INR 0.99 (0.85-1.17); PROTIME 13.1 SECONDS (11.6-15.0)
[2019-07-24 13:15] VITALS: BP 143/77; Ht 167.6 cm; Wt 64.5 kg
== END 2019-07-24 18:03 | disposition home or self-care (01) ==
LOC: D.SP 11:06 → D.CT 13:00 → D.SP 18:03
PROVIDERS: Radiology Diagnostic Radiology; ATTEND Internal Medicine Pulmonary Disease
DX: R91.8 Other nonspecific abnormal finding of lung field (principal)

== ENCOUNTER → 2019-08-06 09:25 | Outpatient (CLI) | payer BC ==
[2019-07-24 13:15] VITALS: BMI 22.9
== END | disposition home or self-care (01) ==
LOC: D.RT 09:25
PROVIDERS: ATTEND Internal Medicine Pulmonary Disease
DX: J44.9 Chronic obstructive pulmonary disease, unspecified (principal)

== ENCOUNTER → 2019-08-17 14:50 | Outpatient (CLI) | payer BC ==
[2019-07-24 13:15] VITALS: BMI 22.9
== END | disposition home or self-care (01) ==
LOC: D.LAB 14:50
PROVIDERS: ATTEND Internal Medicine Pulmonary Disease
DX: J44.9 Chronic obstructive pulmonary disease, unspecified (principal)

== ENCOUNTER 2019-08-26 07:36 | Day surgery (SDC) | payer BC ==
[~2019-08-26] VITALS: Ht 167.6 cm; Wt 64.0 kg
[~2019-08-26 07:36] MED LIST changes: +BREO ELLIPTA 11 EACH INH; +CHANTIX 1 MG TAB1 MG PO; +HYDROCODON-ACE1 EA10 PO; +IPRAT-ALBUT 0.5-3 ML UPD
[2019-08-26 07:58] LABS: HEMATOCRIT 47.5 % (36.0-48.0); HEMOGLOBIN 16.1 g/dL (12-16); MCHC 33.9 g/dL (31.0-37.0); MCV 97.3 fL (80.0-100.0); MEAN PLATELET VOLUME 8.8 fL (7.4-10.4); RBC 4.88 10x6/uL (4.00-5.40); RDW 12.7 % (11.5-14.5); WBC 11.2 10x3/uL (4.8-10.8)
[2019-08-26 08:42] VITALS: BP 115/52; Ht 167.6 cm; Wt 64.0 kg
--- NOTE | 2019-08-26 09:57 | NUR ---
DR. FONG NOTIFIED AND REVIEWED PT'S BEHAVIOR AND ASSESSMENT RESULTS. PT IS A LOW RISK PER DR. FONG. DR. FONG STATED TO GIVE RESOURCES TO PT AT TIME OF DISCHARGE. NO FURTHER ORDERS AT THIS TIME. RESOUCRES REVIEWED WITH PT AND SHE VERBALIZED UNDERSTANDING.
== END 2019-08-26 13:56 | disposition home or self-care (01) ==
LOC: D.OPS 07:36 → D.PAN 09:00 → D.OPS 09:00 → D.PAN 10:00 → D.OPS 10:00
PROVIDERS: Anesthesiology; ATTEND Surgery
DX: C34.90 Malignant neoplasm of unspecified part of unspecified bronchus or lung (principal); J44.9 Chronic obstructive pulmonary disease, unspecified; I10 Essential (primary) hypertension; E03.9 Hypothyroidism, unspecified; E78.5 Hyperlipidemia, unspecified

== ENCOUNTER → 2019-08-28 09:09 | Outpatient (CLI) | payer BC ==
[2019-08-26 08:42] VITALS: BMI 22.8
== END | disposition home or self-care (01) ==
LOC: D.RT 08-21 08:30
PROVIDERS: ATTEND Internal Medicine Cardiovascular Disease
DX: R91.8 Other nonspecific abnormal finding of lung field (principal)

== ENCOUNTER → 2020-01-12 13:08 | Outpatient (CLI) | payer BC ==
[2019-08-26 08:42] VITALS: BMI 22.8
== END | disposition home or self-care (01) ==
LOC: D.CT 01-08 13:30
PROVIDERS: ATTEND Internal Medicine Hematology & Oncology
DX: C34.31 Malignant neoplasm of lower lobe, right bronchus or lung (principal)

== ENCOUNTER → 2020-07-22 13:53 | Outpatient (CLI) | payer MEDICARE, OTHER ==
[2019-08-26 08:42] VITALS: BMI 22.8
== END | disposition home or self-care (01) ==
LOC: D.LAB 13:53
PROVIDERS: ATTEND Internal Medicine Pulmonary Disease
DX: Z20.822 Contact with and (suspected) exposure to COVID-19 (principal)

== ENCOUNTER → 2020-07-26 13:59 | Outpatient (CLI) | payer MEDICARE, OTHER ==
[2019-08-26 08:42] VITALS: BMI 22.8
== END | disposition home or self-care (01) ==
LOC: D.RT 05-25 13:00
PROVIDERS: ATTEND Internal Medicine Pulmonary Disease
DX: J44.9 Chronic obstructive pulmonary disease, unspecified (principal); Z20.822 Contact with and (suspected) exposure to COVID-19

== ENCOUNTER 2020-09-15 16:33 | Emergency (ER) | payer MEDICARE, OTHER ==
[~2020-09-15] VITALS: Ht 167.6 cm; Wt 53.2 kg
[2020-09-15 16:42] VITALS: BP 120/64; Ht 167.6 cm; Wt 53.2 kg
[2020-09-15 17:40] LABS: BASOPHILS 0.3 % (0-2); EOSINOPHILS 1.1 % (0-7); HEMATOCRIT 36.4 % (36.0-48.0); HEMOGLOBIN 12.3 g/dL (12-16); IMMATURE GRANULOCYTES 0.3 % (0-5); LYMPHOCYTE ABS# 2.32 10x3/uL (1.18-3.74); LYMPHOCYTES 19.9 % (15-50); MCH 33.9 pg (26.0-34.0); MCHC 33.8 g/dL (31.0-37.0); MCV 100.3 fL (80.0-100.0); MEAN PLATELET VOLUME 8.9 fL (7.4-10.4); MONOCYTES 9.2 % (2-11); NEUTROPHILS 69.2 % (40-80); PLATELET COUNT 204 10x3/uL (130-400); RBC 3.63 10x6/uL (4.00-5.40); RDW 12.8 % (11.5-14.5); WBC 11.7 10x3/uL (4.8-10.8)
[2020-09-15 17:41] LABS: CALC OSMOLALITY 276 mosm/kg (275-300); CALCIUM 8.8 mg/dL (8.5-10.1); CARBON DIOXIDE 26.7 mmol/L (21.0-32.0); CHLORIDE - SERUM 102 mmol/L (98-107); CREATININE - SERUM 0.6 mg/dL (0.6-1.3); GLUCOSE 123 mg/dL (74-106); POTASSIUM - SERUM 3.4 mmol/L (3.5-5.1); SODIUM 137 mmol/L (136-145); UREA NITROGEN 17 mg/dL (7-18); eGFR NON AFRICAN AMERICAN > 90 mL/min (90-120)
[2020-09-15 17:43] LABS: APTT 26.4 SECONDS (22.8-39.4); INR 1.15 (0.85-1.17); PROTIME 13.6 SECONDS (11.6-15.0)
[2020-09-15 17:47] LABS: ALBUMIN 2.9 g/dL (3.4-5.0); ALKALINE PHOSPHATASE 60 U/L (30-120); ALT (SGPT) 19 U/L (10-68); BILIRUBIN - TOTAL 0.18 mg/dL (0.2-1.3); PROTEIN - SERUM 6.9 g/dL (6.4-8.2)
[2020-09-15] MEDS ORDERED: FLUTICASONE PRO16 GM NASAL (19:07)
== END 2020-09-15 20:08 | disposition home or self-care (01) ==
LOC: D.ER 16:33
PROVIDERS: Student in an Organized Health Care Education/Training Program
DX: R51.9 Headache, unspecified (principal); E87.6 Hypokalemia; Z85.118 Personal history of other malignant neoplasm of bronchus and lung; J44.9 Chronic obstructive pulmonary disease, unspecified; Z72.0 Tobacco use

== ENCOUNTER → 2020-09-23 10:02 | Outpatient (CLI) | payer MEDICARE, OTHER ==
[2020-09-15 16:42] VITALS: BMI 18.9
[~2020-09-23 10:02] MED LIST changes: +FLUTICASONE PRO16 GM NASAL
== END | disposition home or self-care (01) ==
LOC: D.MRI 09-20 13:00
PROVIDERS: ATTEND Internal Medicine Hematology & Oncology
DX: C34.31 Malignant neoplasm of lower lobe, right bronchus or lung (principal)